=== PATIENT | male | born 1950 | race Two or more races ===

== ENCOUNTER → 2019-05-12 | Day surgery (SDC) | payer OTHER ==
[~2019-05-12] MED LIST: ANESTHESIA TRAY IN PYXIS 1 EA TRAY MC ONE; BUPIVACAINE MPF 0.5% W/EPI INJ 30 ML VIAL ONE; HYDROCODONE/APAP 5/325MG 1 EACH TABLET PO PRN
== END | disposition home or self-care (01) ==
LOC: DS 07:07
PROVIDERS: ATTEND Specialist
DX: T84.84XA Pain due to internal orthopedic prosthetic devices, implants and grafts, initial encounter (principal); Y79.3 Surgical instruments, materials and orthopedic devices (including sutures) associated with adverse incidents
CPT/HCPCS: 20680; A6402; J0690; J1100; J2704; J3490 ×2